=== PATIENT | female | born 1950 | race Caucasian/White ===

== ENCOUNTER 2021-12-01 15:00 | Emergency (ER) | payer MEDICARE, SELFPAY ==
--- NOTE | 2021-12-01 15:06 | XRR_ITS ---
PROCEDURE INFORMATION: Exam: XR Chest Exam date and time: 12/01/2021 3:06 PM Age: 71 years old Clinical indication: Other: AMS TECHNIQUE: Imaging protocol: XR of the chest. Views: 1 view. COMPARISON: CR Chest 1 [place] [id number] 12/05/2018 7:52 PM FINDINGS: Lungs: Unremarkable. No consolidation. Pleural spaces: Unremarkable. No pleural effusion. No pneumothorax. Heart/Mediastinum: Unremarkable. No cardiomegaly. Bones/joints: Unremarkable. XR/XR chest 1V portable [id number] IMPRESSION: No acute findings.
[2021-12-01 15:23] VITALS: BP 149/70; PULSE 88; RESP 16; TEMP 36.6; O2SAT 92; BMI 25.9
--- NOTE | 2021-12-01 15:41 | CTR_ITS ---
PROCEDURE INFORMATION: Exam: CT Head Without Contrast Exam date and time: 12/01/2021 3:41 PM Age: 71 years old Clinical indication: Condition or disease; Convulsions or seizures; Altered mental status/memory loss; Additional info: genny US TECHNIQUE: Imaging protocol: Computed tomography of the head without contrast. Radiation optimization: All CT scans at this facility use at least one of these dose optimization techniques: automated exposure control; mA and/or kV adjustment per patient size (includes targeted exams where dose is matched to clinical indication); or iterative reconstruction. COMPARISON: CT head wo con* [id number] 12/05/2018 8:16 PM RADIATION DOSE METRICS: Total DLP (mGy-cm): 685.31 FINDINGS: Brain: There is cerebral volume loss present appropriate for age. No hemorrhage. Unremarkable white matter. No mass effect. Cerebral ventricles: There is ventriculomegaly appropriate for age. Paranasal sinuses: Visualized sinuses are unremarkable. No fluid levels. Mastoid air cells: Visualized mastoid air cells are well aerated. Bones/joints: Unremarkable. No acute fracture. Soft tissues: Unremarkable. CT/CT head wo con* [id number] IMPRESSION: 1. No acute intracranial abnormality. 2. Cerebral volume loss and ventriculomegaly appropriate for age.
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
[2021-12-01 16:01] LABS: Basophils # 0.1 10^3/uL (0.0-0.1); Basophils % 0.8 %; Eosinophils # 0.1 10^3/uL (0.0-0.8); Eosinophils % 1.1 %; Hemoglobin 9.9 g/dL (11.5-15.3); Lymphocytes # 1.2 10^3/uL (0.8-4.8); Lymphocytes % 15.8 %; Mean Corpuscular Hemoglobin 25.2 pg (28.0-34.0); Mean Platelet Volume 11.2 fL (7.4-10.4); Monocytes # 0.4 10^3/uL (0.2-0.9); Neutrophils # 5.56 10^3/uL (1.8-7.7); Nucleated Red Blood Cells % 0 %; Platelet Count 257 10^3/cmm (130-400); Red Blood Count 3.93 10^6/uL (4.1-5.3); Red Cell Distribution Width 16.4 % (12.1-15.1); White Blood Count 7.3 10^3/uL (4.0-10.0)
[2021-12-01] MEDS: LORazepam 2 mg/mL INJ 1 mL 1 MG IVP (16:15)
[2021-12-01 16:40] LABS: Alanine Aminotransferase 11 U/L (0-33); Alkaline Phosphatase 85 IU/L (35-105); Anion Gap 15.4 (5-19); Aspartate Amino Transferase 15 U/L (0-32); Blood Urea Nitrogen 14 mg/dL (8-23); Calcium 8.4 mg/dL (8.5-10.5); Carbon Dioxide 25 mmol/L (22-29); Chloride 105 mmol/L (98-107); Globulin 1.8 g/dL (1.3-4.6); Glucose 114 mg/dL (65-115); Lipase 21 U/L (13-60); Osmolality Calculated 293 mOsm/kg (285-295); Potassium 4.4 mmol/L (3.5-5.1); Sodium 141 mmol/L (136-145); Total Bilirubin 0.2 mg/dL (0.15-1.2); Total Protein 5.8 g/dL (6.6-8.7)
[2021-12-01 16:41] LABS: Troponin(5th) Baseline 14 ng/L (0-10)
--- NOTE | 2021-12-01 17:07 | ECG_ITS ---
[facility] Test Date: 2021-12-01 Pat Name: Pao Rivers Department: Room: Gender: Female Computer Assembler: : 1950 Requested By: Enma Limon Order Number: [id number] Reading MD: Nancy Carrero M.D. Measurements Intervals [place] Rate: 88 P: 11 IN: 134 QRS: 18 QRSD: 79 T: 54 QT: 366 QTc: 444 Interpretive Statements SINUS RHYTHM Compared to ECG 12/05/2018 21:33:22 No significant changes Electronically Signed On 12-02-2021 20:22:07 CREATIVE PROJECT MANAGER by Nancy Carrero M.D. [id number]
[2021-12-01 18:13] LABS: Troponin 5 2HR 19.47 ng/L (0-10); Troponin 5 2HR Delta 5.47 ABS# (0-10)
--- NOTE | 2021-12-03 17:27 | DCPLANNER ---
Addendum entered by Aleyda Peterson 12/14/21 06:26: actuarial manager was contacted by the office of Dr. Madison stating that clinic called and left a message to patient to call clinic to schedule an appointment. Original Note: actuarial manager had message to schedule a follow up appointment for patient with neurology. actuarial manager emailed patients information to the neurology clinic. Patients information will be printed and reviewed. Clinic will call patient with appointment information.
--- NOTE | 2021-12-06 12:45 | DCPLANNER ---
corporate accounting manager had message to speak with patient about scheduling a follow up appointment for patient with primary care physician. corporate accounting manager called phone number [phone], unable to speak with patient at this time, and unable to leave a voicemail for patient at this time.
== END 2021-12-01 18:58 | disposition home or self-care (01) ==
PROVIDERS: Emergency Provider Emergency Medicine; PCP Family Medicine
DX: G40.909 Epilepsy, unspecified, not intractable, without status epilepticus (principal)
CPT/HCPCS: 70450; 71045; 80053; 83690; 84484; 85025; 93005; 96374; 96375; 99283; J1953; J2060

== ENCOUNTER 2023-04-30 10:37 | Emergency (ER) | payer MEDICARE, SELFPAY ==
[2023-04-30 10:41] VITALS: PULSE 56; RESP 16; TEMP 36.7; O2SAT 97; BMI 35.6
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
[2023-04-30] MEDS: triamcinolone 40 mg/mL SDV IM (11:04)
[2023-04-30 11:12] VITALS: BP 170/82; PULSE 54; O2SAT 95
== END 2023-04-30 11:13 | disposition home or self-care (01) ==
PROVIDERS: Emergency Provider Physician Assistant; PCP Family Medicine
DX: L23.7 Allergic contact dermatitis due to plants, except food (principal)
CPT/HCPCS: 96372; 99284; J3301

== ENCOUNTER 2024-01-18 22:12 | Emergency (ER) | payer MEDICARE, SELFPAY ==
[2024-01-18 22:22] VITALS: PULSE 94; RESP 20; TEMP 36.6; O2SAT 94; BMI 23.2
--- NOTE | 2024-01-18 22:36 | XRR_ITS ---
PROCEDURE INFORMATION: Exam: XR Right Ribs with PA Chest Exam date and time: 01/18/2024 10:38 PM Age: 73 years old Clinical indication: Other: SOB; Patient HX: RT ant rib pain post fall TECHNIQUE: Imaging protocol: Radiologic exam of the right ribs with PA chest. Views: 3 views COMPARISON: CR XR chest 1V portable [id number] 12/01/2021 3:35 PM FINDINGS: Lungs: Unremarkable. No consolidation. Pleural spaces: Unremarkable. No pleural effusion. No pneumothorax. Heart/Mediastinum: Unremarkable. No cardiomegaly. Bones/joints: Unremarkable. XR/XR ribs RT mn 3V w CXR1V [id number] IMPRESSION: No acute findings.
--- NOTE | 2024-01-18 23:12 | ED_ITS ---
HPI - Fall General: Chief Complaint: Shortness of Breath/Dyspnea Stated Complaint: fell, inured on r side has ams Time Seen by Provider: 01/18/24 22:28 Source: patient and family Mode of arrival: ambulatory Limitations: no limitations History of Present Illness: Patient is a 73-year-old female presents to ED today with a complaint of right rib pain following a fall. Daughter states patient has dementia with behavioral disturbances. She states 3 days ago in the evening she was in one of her moods and purposely flailed herself to the ground. Daughter states she witnessed patient fall to the ground on her own. She did not strike her head or lose consciousness. She states she has intermittently complained of rib pain since that incident and demanded today that she be brought to the emergency department. Daughter states she has been up and ambulatory since the fall without difficulty or assistance. complaint: fall Onset (ago): day(s) Fall from: standing Fall witnessed: yes, by family Place fall occurred: home Loss of consciousness: None Prolonged down time: no Symptoms prior to fall: none Context: other (behavioral) Location of injury: chest Associated symptoms-after fall: Reports chest pain (R chest wall pain); Denies abdominal pain, headache(s), hematuria or lightheadedness Review of Systems Const: Denies: fever(s), chills, body aches, fatigue or malaise Card: Reports: chest pain (R chest wall pain); Denies: palpitations, irregular heart rhythm, edema, swelling of feet/ankles, lightheadedness, syncope or dyspnea on exertion Resp: Denies: dyspnea, productive cough, non-productive cough, wheezing, stridor, pain on inspiration, change in phlegm color, hemoptysis or chest congestion GI: Denies: abdominal pain, nausea, vomiting or diarrhea : Denies: flank pain, dysuria or hematuria Musc: Denies: back pain Neuro: Denies: headache(s) or dizziness Physical Exam Const: COMMON NORMALS: no acute distress, average body habitus, patient oriented x3, alert and well nourished EXAM LIMITATIONS: other limitations (hard of hearing, dementia) OTHER: chronic tremor HENMT: COMMON NORMALS: normocephalic and atraumatic HEAD & SCALP: normal to inspection, normocephalic and atraumatic FACE & SINUS: normal facial exam Eye: GENERAL EYE: appearance normal, both eyes and all related structures and normal light reflex DIRECT OPHTHALMOSCOPY: Yes normal light reflex Neck/C-Spine: COMMON NORMALS: full ROM GENERAL: Yes normal visual inspection CERVICAL SPINE: No Cervical spine tenderness Chest: COMMONS NORMALS: normal inspection of the chest OTHER: TTP R lateral ribs without crepitus; lung sounds normal Resp: COMMON NORMALS: normal respiratory effort and clear to auscultation bilaterally AUSCULTATION: clear to auscultation bilaterally Cardio: COMMON NORMALS: regular rate and regular rhythm RATE: regular rate RHYTHM: regular rhythm GI: COMMON NORMALS: Normal to inspection, nondistended, normoactive bowel sounds present, Soft to palpation, non-tender, No hepatosplenomegaly present and no masses PALPATION: Yes Soft to palpation and Yes No hepatosplenomegaly present : COMMON NORMALS: Yes no CVA tenderness BLADDER/KIDNEY EXAM: Yes no CVA tenderness Back/Pelvis: COMMON NORMALS: no CVA tenderness and thoracic and lumbar spine normal to inspection Extremity: COMMON NORMALS: normal to inspection and full ROM GENERAL: Yes normal exam except as noted Neuro: COMMON NORMALS: patient oriented x3 SENSORIUM/ORIENTATION: Yes alert Skin: TRAUMA: no lacerations or abrasions Course Vital Signs: Vital signs: Vital Signs Temperature 98 F 01/18/24 22:22 Pulse Rate 94 01/18/24 22:22 Respiratory Rate 20 H 01/18/24 22:22 Pulse Oximetry 94 01/18/24 22:22 Oxygen Delivery Me thod Room Air 01/18/24 22:22 MDM - Fall Medical Decision Making XRs of the right ribs and chest via personal interpretation is unremarkable. There were no other injury sustained per witness. We discussed conservative treatment at home with OTC analgesics as well as ice/heat. Return ED precau tions given. Medical Records I reviewed the patient's medical records. XR interpretation done by ED provider, pending radiology final review Discharge Plan Discharge Patient Disposition: Home Clinical Impression: Contusion of rib on right side Qualifiers: Encounter type: initial encounter Qualified Code(s): S20.211A - Contusion of right front wall of thorax, initial encounter Condition: Stable Prescriptions: No Action atorvastatin 20 mg tablet 20 mg PO DAILY Qty: 30 0RF Discharge Orders: Discharge ED (Routine); Ordered 01/18/24 Ordered By: Isabelle Gauthier Referrals: Vani Duggan DO [Primary Care Provider] - Patient Instructions: Rib Contusion (ED) Coding Level of Care Code ED Financial Representative for Navi Acevedo
[2024-01-18] MEDS: morphine 4 mg/mL SDV 1 mL IM (23:49)
== END 2024-01-19 00:15 | disposition home or self-care (01) ==
PROVIDERS: Emergency Provider Physician Assistant; PCP Family Medicine
DX: S20.211A Contusion of right front wall of thorax, initial encounter (principal); F03.90 Unspecified dementia, unspecified severity, without behavioral disturbance, psychotic disturbance, mood disturbance, and anxiety; W18.39XA Other fall on same level, initial encounter
CPT/HCPCS: 71101; 96372; 99284; J2270

== ENCOUNTER 2024-03-27 10:37 | Emergency (ER) | payer MEDICARE, SELFPAY ==
--- NOTE | 2024-03-27 10:42 | XRR_ITS ---
PROCEDURE INFORMATION: Exam: XR Chest Exam date and time: 03/27/2024 11:47 AM Age: 73 years old Clinical indication: Chest pressure; Patient HX: Svt; Syncope; Chest pain TECHNIQUE: Imaging protocol: Radiologic exam of the chest. Views: 1 view. COMPARISON: CR XR ribs RT mn 3V w CXR1V [id number] 01/18/2024 10:38 PM FINDINGS: Lungs: Suboptimal pulmonary expansion with associated accentuation of bronchovascular markings. No acute pulmonary pathology. Pleural spaces: No pleural effusion. Heart/Mediastinum: Cardiomediastinal contours accentuated by low lung volumes and AP technique. Diaphragm: Elevated right hemidiaphragm. Bones/joints: No significant pathology. XR/XR chest 1V portable [id number] IMPRESSION: No acute pathology or significant interval change given technique.
--- NOTE | 2024-03-27 10:42 | ECG_ITS ---
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 Measurements Intervals [place] Rate: 74 P: 34 ME: 155 QRS: 24 QRSD: 78 T: 237 QT: 379 QTc: 422 Interpretive Statements SINUS RHYTHM POSSIBLE LEFT ATRIAL ENLARGEMENT [-0.1mV P-WAVE IN V1/V2] LEFT VENTRICULAR HYPERTROPHY AND ST-T CHANGE [VOLTAGE CRITERIA PLUS ST/T ABNORMALITY] Compared to ECG 12/01/2021 17:48:10 Left ventricular hypertrophy now present ST (T wave) deviation now present Electronically Signed On 03-27-2024 19:39:18 CDT by Nancy Carrero M.D. [id number] f
[2024-03-27 10:44] VITALS: BP 143/104; PULSE 94; RESP 16; TEMP 36.6; O2SAT 97; BMI 23.2
--- NOTE | 2024-03-27 10:49 | ED_ITS ---
HPI - Arrhythmia/Palpitations 2 General: Chief Complaint: Syncope Stated Complaint: syncopal episode Time Seen by Provider: 03/27/24 10:42 History of Present Illness: 73-year-old female presents emergency de partment via EMS personnel stating that she felt like her heart was beating excessively fast and causing her to have chest pressure approximately 1 hour prior to arrival today. EMS personnel state that the started an IV and she converted to a normal sinus rhythm. Patient states she feels much better and is doing well. She did have some associated nausea at the time of her chest pressure that she describes as a 2 out of 10 at that time. She said she did have associated shortness of breath and felt nauseated but that is resolved since her heart slowed down. Associated symptoms: Reports nausea Review of Systems 2 General: Reports: 10 or more systems reviewed and unremarkable except in HPI and below Card: Reports: chest pain, palpitations and irregular heart rhythm Resp: Reports: dyspnea GI: Reports: nausea Physical Exam 2 Narrative: EXAM NARRATIVE: Constitutional: the patient appears well nourished and of normal development. Vital signs as documented. No acute distress at present. Alert and oriented-to person, place, time and situation. Head, eyes, ears, nose, mouth, throat: Normocephalic, atraumatic. Pupils-equal, round, reactive to light. No scleral icterus. Normal-appearing external ears. Normal appearing nasal turbinates, no drainage. No obvious oral lesions, posterior oropharynx without erythema or exudates. Neck: Supple, trachea is midline, no lymphadenopathy, no jugular venous distension, thyromegaly, or carotid bruits. Carotid upstrokes are brisk bilaterally. Lungs: clear to auscultation to all lung wilkes. Symmetrical rise and fall of chest, no obvious signs of increased work of breathing at present. Cardiac: Regular rate and rhythm, positive S1, S2. No murmurs, rubs or gallops that I can appreciate Abdomen: Soft, non-tender to palpation, normal active bowel sounds to all quadrants. No palpable masses, no organomegaly and abdominal bruits. Extremities: 2+ pulses in the upper extremities that are equal bilaterally, 2+ pulses in the lower extremities that are equal bilaterally. Non-edematous. Moves all extremities well, sensation to all extremities are noted. Skin: Warm, dry, intact. Course 2 Vital Signs: Vital signs: Vital Signs Temperature 97.9 F 03/27/24 10:44 Pulse Rate 68 03/27/24 12:21 Respiratory Rate 16 03/27/24 11:51 Blood Pressure 115/59 03/27/24 12:21 Pulse Oximetry 97 03/27/24 12:21 Oxygen Delivery Me thod Room Air 03/27/24 11:21 MDM - Arrhythmia/Palpitations Medical Decision Making Physical exam completed and documented, I will obtain serial cardiac enzymes, serial twelve-lead EKGs, chest x-ray, CBC, CMP, urinalysis, B-type natriuretic peptide, PT/PTT/INR, and a chest x-ray. I will provide cardiac dose aspirin and nitroglycerin administration if indicated. Pending the review of the twelve-lead EKG I will also consider providing loading dose of heparin and possible heparin drip as well as evaluate the need for nitroglycerin drip, and reevaluate accordingly. I have reviewed previous and pertinent medical records for assist in obtaining beneficial medical information to improved the care and treatment of the patient. I will reevaluate in consider hospitalist consultation and cardiology consultation. Medical Records I reviewed the patient's medical records. Lab Data I reviewed the patient's lab results. 03/27/24 11:03 03/27/24 11:03 Radiology Impressions Chest X-Ray 03/27/24 10:42 IMPRESSION: No acute pathology or significant interval change given technique. Laboratory Results WBC 4.74 10^3/uL (3.29-11.43) 03/27/24 11:03 RBC 4.87 10^6/uL (3.85-5.65) 03/27/24 11:03 Hgb 14.80 g/dL (11.27-16.99) 03/27/24 11:03 Hct 46.8 % (36-47) 03/27/24 11:03 MCV 96.1 fl (85-98) 03/27/24 11:03 MCH 30.4 pg (27-33) 03/27/24 11:03 MCHC 31.6 g/dL (30-55) 03/27/24 11:03 RDW 14.6 % (12.1-15.1) 03/27/24 11:03 Plt Count 163 10^3/cmm (157-399) 03/27/24 11:03 MPV 11.3 fL (7.4-10.4) H 03/27/24 11:03 Neut % (Auto) 66.3 % 03/27/24 11:03 Lymph % (Auto) 20.5 % 03/27/24 11:03 Antelope % (Auto) 12.0 % 03/27/24 11:03 Eos % (Auto) 0.4 % 03/27/24 11:03 Baso % (Auto) 0.6 % 03/27/24 11:03 Neut # (Auto) 3.14 10^3/uL (1.8-7.7) 03/27/24 11:03 Lymph # (Auto) 1.0 10^3/uL (0.8-4.8) 03/27/24 11:03 Antelope # (Auto) 0.6 10^3/uL (0.2-0.9) 03/27/24 11:03 Eos # (Auto) 0.0 10^3/uL (0.0-0.8) 03/27/24 11:03 Baso # (Auto) 0.0 10^3/uL (0.0-0.1) 03/27/24 11:03 Nucleated RBC % (auto) 0 % 03/27/24 11:03 Nucleated RBCs # 0.0 /100WBC 03/27/24 11:03 PT 12.90 SECONDS (12.1-14.9) 03/27/24 11:03 INR 0.94 (0.8-1.2) 03/27/24 11:03 Sodium 138 mmol/L (136-145) 03/27/24 11:03 Potassium 3.8 mmol/L (3.5-5.1) 03/27/24 11:03 Chloride 103 mmol/L (98-107) 03/27/24 11:03 Carbon Dioxide 24 mmol/L (22-29) 03/27/24 11:03 Anion Gap 14.8 (5-19) 03/27/24 11:03 BUN 19 mg/dL (8-23) 03/27/24 11:03 Creatinine 0.8 mg/dL (0.5-0.9) 03/27/24 11:03 GFR Calculation Not Reportable 03/27/24 11:03 Glucose 114 mg/dL (65-115) 03/27/24 11:03 Calculated Osmolality 289 mOsm/kg (285-295) 03/27/24 11:03 Calcium 8.3 mg/dL (8.5-10.5) L 03/27/24 11:03 Total Bilirubin 0.3 mg/dL (0.15-1.2) 03/27/24 11:03 AST 17 U/L (0-32) 03/27/24 11:03 ALT 14 U/L (0-33) 03/27/24 11:03 Alkaline Phosphatase 70 U/L (35-105) 03/27/24 11:03 Troponin T Baseline 10 ng/L (0-10) 03/27/24 11:03 Troponin T 120 Minute 11.65 ng/L (0-10) H 03/27/24 13:43 Delta Troponin T 1.65 ABS# (0-10) 03/27/24 13:43 Total Protein 6.4 g/dL (6.6-8.7) L 03/27/24 11:03 Albumin 4.0 g/dL (3.5-5.2) 03/27/24 11:03 Globulin 2.4 g/dL (1.3-4.6) 03/27/24 11:03 All radiology interpretation(s) finalized by discharge EKG Data EKG 1: Interpretation: Twelve-lead EKG obtained 1126 and reviewed 1130 demonstrates sinus rhythm with a ventricular rate of 74 bpm, ME interval 155, QRS duration 78, QT 379, QTc [address] elevation or depression to demonstrate acute ischemia or infarction at present. Other EKG comments: Chest X-Ray 03/27/24 10:42 IMPRESSION: No acute pathology or significant interval change given technique. EKG 2: Interpretation: Twelve-lead EKG obtained at 2059 and reviewed at 1304 demonstrates sinus rhythm, ventricular rate 69 bpm, ME interval 148, QRS duration 82, QT [address] elevation or depression to demonstrate acute ischemia or infarction at present. Other EKG comments: Chest X-Ray 03/27/24 10:42 IMPRESSION: No acute pathology or significant interval change given technique. Discharge Plan Discharge Patient Disposition: Home Clinical Impression: Paroxysmal supraventricular tachycardia seen on court recording monitor Syncope Qualifiers: Syncope type: unspecified Qualified Code(s): R55 - Syncope and collapse Diarrhea Qualifiers: Diarrhea type: unspecified type Qualified Code(s): R19.7 - Diarrhea, unspecified Condition: Stable Prescriptions: New Imodium A-D 2 mg tablet 1 mg PO Q6H PRN (Reason: loose stool) Qty: 14 0RF No Action valproic acid 250 mg Capsule 500 mg PO BID Zoloft 25 mg Tablet 25 mg PO DAILY buspirone 15 mg Tablet 15 mg PO TID Discharge Orders: Discharge ED (Routine); Ordered 03/27/24 Ordered By: Imer Escudero Referrals: Nancy Carrero MD [Physician] - Vani Duggan DO [Primary Care Provider] - Discharge Diet: Usual diet Discharge Activity: Resume usual activity Patient Instructions: Opioid Safety, Pain Management Activity Restrictions/Additional Instructions: Activity Restrictions/Additional Instructions: Thank you for choosing [facility] for your healthcare needs today. Please realize that you were seen in the Emergency Department and that we are providing you with an emergency medical screening exam and this may not be a complete and all inclusive of all the testing and or medical work-up that you may need to determine your ailment or severity of your illness. It is very important that you follow-up as instructed with your Primary care provider or Specialist for additional evaluation and to discuss your medical treatment plan. Coding Level of Care Code ED Parcel Post Weigher for Navi Acevedo
[2024-03-27 10:51] VITALS: BP 143/104; PULSE 90; RESP 22; O2SAT 98
[2024-03-27 11:21] VITALS: BP 108/62; PULSE 77; RESP 16; O2SAT 96
[2024-03-27 11:24] LABS: Basophils % 0.6 %; Eosinophils % 0.4 %; Hematocrit 46.8 % (36-47); Lymphocytes % 20.5 %; Mean Corpuscular HGB Conc 31.6 g/dL (30-55); Mean Corpuscular Hemoglobin 30.4 pg (27-33); Mean Corpuscular Volume 96.1 fl (85-98); Mean Platelet Volume 11.3 fL (7.4-10.4); Monocytes # 0.6 10^3/uL (0.2-0.9); Neutrophils # 3.14 10^3/uL (1.8-7.7); Neutrophils % 66.3 %; Nucleated Red Blood Cells % 0 %; Platelet Count 163 10^3/cmm (157-399); Red Blood Count 4.87 10^6/uL (3.85-5.65); Red Cell Distribution Width 14.6 % (12.1-15.1); White Blood Count 4.74 10^3/uL (3.29-11.43)
[2024-03-27 11:41] LABS: INR 0.94 (0.8-1.2)
[2024-03-27 11:49] LABS: Alanine Aminotransferase 14 U/L (0-33); Alkaline Phosphatase 70 U/L (35-105); Anion Gap 14.8 (5-19); Aspartate Amino Transferase 17 U/L (0-32); Blood Urea Nitrogen 19 mg/dL (8-23); Calcium 8.3 mg/dL (8.5-10.5); Carbon Dioxide 24 mmol/L (22-29); Chloride 103 mmol/L (98-107); Creatinine Clr Calc Pharmacy 51.5744; Globulin 2.4 g/dL (1.3-4.6); Glucose 114 mg/dL (65-115); Osmolality Calculated 289 mOsm/kg (285-295); Potassium 3.8 mmol/L (3.5-5.1); Sodium 138 mmol/L (136-145); Total Bilirubin 0.3 mg/dL (0.15-1.2); Total Protein 6.4 g/dL (6.6-8.7)
[2024-03-27 11:50] LABS: Troponin(5th) Baseline 10 ng/L (0-10)
[2024-03-27 11:51] VITALS: BP 115/64; PULSE 73; RESP 16; O2SAT 97
[2024-03-27 12:21] VITALS: BP 115/59; PULSE 68; O2SAT 97
--- NOTE | 2024-03-27 12:42 | ECG_ITS ---
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 Measurements Intervals [place] Rate: 69 P: 56 ME: 148 QRS: 64 QRSD: 82 T: 268 QT: 413 QTc: 444 Interpretive Statements SINUS RHYTHM ST DEVIATION AND MODERATE T-WAVE ABNORMALITY, CONSIDER ANTEROLATERAL ISCHEMIA [-0.1+ mV T-WAVE IN V3-V6] ST DEVIATION AND MODERATE T-WAVE ABNORMALITY, CONSIDER INFERIOR ISCHEMIA [-0.1+ mV T-WAVE IN II/aVF] Compared to ECG 03/27/2024 11:26:06 T-wave abnormality now present Possible ischemia now present Left ventricular hypertrophy no longer present ST (T wave) deviation no longer present Electronically Signed On 03-27-2024 20:01:40 CDT by Nancy Carrero M.D. [id number]
[2024-03-27 14:12] LABS: Troponin 5 2HR 11.65 ng/L (0-10); Troponin 5 2HR Delta 1.65 ABS# (0-10)
== END 2024-03-27 15:04 | disposition home or self-care (01) ==
PROVIDERS: Emergency Provider Internal Medicine; PCP Family Medicine
DX: R55 Syncope and collapse (principal); R19.7 Diarrhea, unspecified; I47.19 Other supraventricular tachycardia
CPT/HCPCS: 36415; 71045; 80053; 84484; 85025; 85610; 93005; 99285

== ENCOUNTER 2024-04-28 20:30 | Inpatient (IN) | payer MEDICARE, SELFPAY ==
[2024-04-28 20:32] VITALS: BP 140/83; PULSE 107; RESP 20; TEMP 36.6; O2SAT 93; BMI 23.2
--- NOTE | 2024-04-28 20:33 | XRR_ITS ---
PROCEDURE INFORMATION: Exam: XR Chest Exam date and time: 04/28/2024 9:01 PM Age: 73 years old Clinical indication: Shortness of breath and other: Seizures TECHNIQUE: Imaging protocol: Radiologic exam of the chest. Views: 1 view. COMPARISON: CR (CHEST, ) 03/27/2024 11:47 AM FINDINGS: Lungs: No focal consolidation. Pleural spaces: No evidence of pneumothorax. No evidence of pleural effusion. Heart/Mediastinum: Cardiomediastinal silhouette is within normal limits. Bones/joints: No evidence of acute osseous abnormality. XR/XR chest 1V portable [id number] IMPRESSION: 1. No acute cardiopulmonary abnormality.
--- NOTE | 2024-04-28 20:34 | ECG_ITS ---
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 Measurements Intervals [place] Rate: 106 P: 0 NM: 0 QRS: 39 QRSD: 93 T: 244 QT: 339 QTc: 450 Interpretive Statements ATRIAL FIBRILLATION WITH RAPID VENTRICULAR RESPONSE POSSIBLE RIGHT VENTRICULAR CONDUCTION DELAY [RSR (QR) IN V1/V2] ST DEVIATION AND MODERATE T-WAVE ABNORMALITY, CONSIDER ANTEROLATERAL ISCHEMIA [-0.1+ mV T-WAVE IN V3-V6] ST DEVIATION AND MODERATE T-WAVE ABNORMALITY, CONSIDER INFERIOR ISCHEMIA [-0.1+ mV T-WAVE IN II/aVF] Compared to ECG 03/27/2024 12:59:03 Sinus rhythm no longer present T-wave abnormality still present Possible ischemia still present Electronically Signed On 04-29-2024 15:45:30 CDT by Haider Alexandre M.D. [email or web address] for [id number]
--- NOTE | 2024-04-28 20:39 | ED_ITS ---
HPI - Syncope 2 General: Chief Complaint: Seizure Stated Complaint: seizure Time Seen by Provider: 04/28/24 20:30 History of Present Illness: 73-year-old female who presents to the e mergency room by ambulance with what sounds like a near syncopal episode and some seizure-like activity without a postictal state. EMS reports that she was in A-fib with RVR when they arrived with rates as high as 1 6170. She had an episode of A-fib with RVR it sounds like recently but has not officially been diagnosed she says. On presentation her rate is down to 110. When asked her about this she says it has been going on for years. She did report having chest pressure at the time of the episode. No reports of fevers. No cough. No new lower extremity swelling. Review of Systems 2 Narrative: Constitutional symptoms: Negative except as documented in HPI. Skin symptoms: Negative except as documented in HPI. Eye symptoms: Negative except as documented in HPI. ENMT symptoms: Negative except as documented in HPI. Respiratory symptoms: Negative except as documented in HPI. Cardiovascular symptoms: Negative except as documented in HPI. Gastrointestinal symptoms: Negative except as documented in HPI. Genitourinary symptoms: Negative except as documented in HPI. Musculoskeletal symptoms: Negative except as documented in HPI. Neurologic symptoms: Negative except as documented in HPI. Psychiatric symptoms: Negative except as documented in HPI. Endocrine symptoms: Negative except as documented in HPI. Physical Exam 2 Narrative: EXAM NARRATIVE: General: Alert, no acute distress. Skin: Warm, dry. Head: Normocephalic, atraumatic. Neck: Supple, trachea midline. Eye: Extraocular movements are intact. Ears, nose, mouth and throat: mucosa moist. Cardiovascular: Tachycardic, irregularly irregular, Normal peripheral perfusion. Respiratory: Lungs are clear to auscultation, respirations are non-labored, breath sounds are equal, Symmetrical chest wall expansion. Gastrointestinal: Soft, Nontender, Non distended, Normal bowel sounds. Musculoskeletal: Normal ROM, no deformity. Neurological: Alert and oriented, No focal neurological deficit observed. Psychiatric: Cooperative, appropriate mood & affect. Course 2 Vital Signs: Vital signs: Vital Signs Temperature 97.8 F 04/28/24 20:32 Pulse Rate 103 H 04/28/24 23:04 Respiratory Rate 20 H 04/28/24 23:04 Blood Pressure 118/71 04/28/24 23:04 Pulse Oximetry 100 04/28/24 23:04 Oxygen Delivery Me thod Nasal Cannula 04/28/24 23:04 Oxygen Flow Rate 4 04/28/24 23:04 MDM - Syncope Medical Decision Making Medical decision making: Differential diagnosis including but not limited to and based on the above HPI, review of systems and physical exam in this patient with syncope: Vasovagal, orthostatics hypotension, cardiac dysrhythmia, myocardial infarction, infection and hypotension, Orders placed to evaluate differential diagnosis based on the above differential, HPI and physical exam EKG: Time 2038 rate 106. Atrial fibrillation with rapid ventricular response, No ST-T changes, no ectopy, This was reviewed and interpreted by myself the ER physician at 2041 Chest x-ray: No acute process. No infiltrate. No pneumothorax. No cardiomegaly. This was reviewed and interpreted by myself the ER physician. Repeat EKG: Time 2257 rate 96 atrial fibrillation with controlled rate, No ST-T changes, no ectopy, This was reviewed and interpreted by myself the ER physician at 2304. Heart rate has slowed some and she has in the 90s. Compared to last EKG Lab Review: Laboratory results were reviewed and interpreted by myself the emergency room physician. White count is 6. Hemoglobin is 15. Both normal. Her BUN and creatinine are 25 and 1. proBNP is 668 which is not significant. CRP is only 3. LFTs are normal. Prolonged emergency room stay: Patient with A-fib with RVR needs urinalysis for complete workup and has refused cath and has not urinated I reviewed the patient's medical record. Reexamination: Patient heart rate has improved but she is still in A-fib. Irregular. No increased work of breathing. Quite a difficult time getting a urine. She finally did produce some urine and she does have a urinary tract infection. She does seem slightly confused at times but is alert and oriented. Consultation: I spoke with Dr. Emanuel who agrees to admission. He recommends cardiac stepdown. Assessment and plan: Syncope Atrial fibrillation with rapid ventricular response Urinary tract infection Dehydration -Patient has received 2 L normal saline. Heart rate has improved and is below 100 now without any medications. -IV Rocephin in the emergency room. -I discussed the patient with the hospitalist on-call who is admitting the patient. - Discussed findings and plan with patient. Answered any questions. - All laboratory values were reviewed and interpreted personally by myself, the ER physician - All imaging was reviewed and interpreted personally by myself, the ER physician. - Evaluation and treatment of this problem were appropriate in the emergency setting Lab Data 04/28/24 21:15 04/28/24 21:15 Radiology Impressions Chest X-Ray 04/28/24 20:33 IMPRESSION: 1. No acute cardiopulmonary abnormality. Laboratory Results WBC 6.15 10^3/uL (3.29-11.43) 04/28/24 21:15 RBC 4.99 10^6/uL (3.85-5.65) 04/28/24 21:15 Hgb 15.40 g/dL (11.27-16.99) 04/28/24 21:15 Hct 47.5 % (36-47) H 04/28/24 21:15 MCV 95.2 fl (85-98) 04/28/24 21:15 MCH 30.9 pg (27-33) 04/28/24 21:15 MCHC 32.4 g/dL (30-55) 04/28/24 21:15 RDW 14.6 % (12.1-15.1) 04/28/24 21:15 Plt Count 208 10^3/cmm (157-399) 04/28/24 21:15 MPV 10.7 fL (7.4-10.4) H 04/28/24 21:15 Neut % (Auto) 51.5 % 04/28/24 21:15 Lymph % (Auto) 34.5 % 04/28/24 21:15 Robeson % (Auto) 11.7 % 04/28/24 21:15 Eos % (Auto) 0.8 % 04/28/24 21:15 Baso % (Auto) 1.0 % 04/28/24 21:15 Neut # (Auto) 3.17 10^3/uL (1.8-7.7) 04/28/24 21:15 Lymph # (Auto) 2.1 10^3/uL (0.8-4.8) 04/28/24 21:15 Robeson # (Auto) 0.7 10^3/uL (0.2-0.9) 04/28/24 21:15 Eos # (Auto) 0.1 10^3/uL (0.0-0.8) 04/28/24 21:15 Baso # (Auto) 0.1 10^3/uL (0.0-0.1) 04/28/24 21:15 Nucleated RBC % (auto) 0 % 04/28/24 21:15 Nucleated RBCs # 0.0 /100WBC 04/28/24 21:15 Sodium 142 mmol/L (136-145) 04/28/24 21:15 Potassium 4.7 mmol/L (3.5-5.1) 04/28/24 21:15 Chloride 102 mmol/L (98-107) 04/28/24 21:15 Carbon Dioxide 28 mmol/L (22-29) 04/28/24 21:15 Anion Gap 16.7 (5-19) 04/28/24 21:15 BUN 25 mg/dL (8-23) H 04/28/24 21:15 Creatinine 1.0 mg/dL (0.5-0.9) H 04/28/24 21:15 GFR Calculation Not Reportable 04/28/24 21:15 Glucose 130 mg/dL (65-115) H 04/28/24 21:15 Calculated Osmolality 300 mOsm/kg (285-295) H 04/28/24 21:15 Lactic Acid 1.4 mmol/L (0.5-2.2) 04/28/24 21:15 Calcium 9.4 mg/dL (8.5-10.5) 04/28/24 21:15 Total Bilirubin 0.2 mg/dL (0.15-1.2) 04/28/24 21:15 AST 14 U/L (0-32) 04/28/24 21:15 ALT 9 U/L (0-33) 04/28/24 21:15 Alkaline Phosphatase 74 U/L (35-105) 04/28/24 21:15 Troponin T Baseline 14 ng/L (0-10) H 04/28/24 21:15 Troponin T 120 Minute 11.80 ng/L (0-10) H 04/28/24 23:00 Delta Troponin T -2.20 ABS# (0-10) L 04/28/24 23:00 C-Reactive Protein 3.0 mg/L (0.0-4.9) 04/28/24 21:15 NT-Pro-B Natriuret Pep 668 pg/mL (0-125) H 04/28/24 21:15 Total Protein 6.6 g/dL (6.6-8.7) 04/28/24 21:15 Albumin 4.3 g/dL (3.5-5.2) 04/28/24 21:15 Globulin 2.3 g/dL (1.3-4.6) 04/28/24 21:15 Urine Color Yellow (Yellow) 04/28/24 23:41 Urine Appearance Cloudy (CLEAR) A 04/28/24 23:41 Urine pH 6 (5-7) 04/28/24 23:41 Ur Specific Dexter 1.020 (1.005-1.030) 04/28/24 23:41 Urine Protein Neg (Negative) 04/28/24 23:41 Urine Glucose (UA) Norm (Normal) 04/28/24 23:41 Urine Ketones Negative (Negative) 04/28/24 23:41 Urine Blood 2+ (Negative) H 04/28/24 23:41 Urine Nitrate Negative (Negative) 04/28/24 23:41 Urine Bilirubin Neg (Negative) 04/28/24 23:41 Urine Urobilinogen Neg mg/dL (Negative) 04/28/24 23:41 Ur Leukocyte Esterase 2+ (Negative) H 04/28/24 23:41 Urine RBC 5-10 /hpf (0-2) H 04/28/24 23:41 Urine WBC 10-15 /hpf (0-5) H 04/28/24 23:41 Ur Squamous Epith Cells 0-4 /hpf (0-5) H 04/28/24 23:41 Amorphous Sediment Not Reportable 04/28/24 23:41 Urine Bacteria 3+ /hpf (NONE) H 04/28/24 23:41 Hyaline Casts 0-4 /lpf H 04/28/24 23:41 Urine Mucus 3+ /hpf 04/28/24 23:41 All radiology interpretation(s) finalized by discharge Discharge Plan Discharge Patient Disposition: Admitted As Inpatient Clinical Impression: Syncope, Atrial fibrillation with rapid ventricular response, Urinary tract infection, Dehydration Condition: Stable Coding Level of Care Code ED Station Engineer for Navi Acevedo
[2024-04-28 21:21] VITALS: BP 132/85; PULSE 100; RESP 21; O2SAT 95
[2024-04-28 21:25] LABS: Basophils # 0.1 10^3/uL (0.0-0.1); Eosinophils # 0.1 10^3/uL (0.0-0.8); Eosinophils % 0.8 %; Hematocrit 47.5 % (36-47); Lymphocytes # 2.1 10^3/uL (0.8-4.8); Lymphocytes % 34.5 %; Mean Corpuscular HGB Conc 32.4 g/dL (30-55); Mean Corpuscular Hemoglobin 30.9 pg (27-33); Mean Corpuscular Volume 95.2 fl (85-98); Mean Platelet Volume 10.7 fL (7.4-10.4); Monocytes # 0.7 10^3/uL (0.2-0.9); Monocytes % 11.7 %; Neutrophils # 3.17 10^3/uL (1.8-7.7); Neutrophils % 51.5 %; Nucleated Red Blood Cells % 0 %; Platelet Count 208 10^3/cmm (157-399); Red Blood Count 4.99 10^6/uL (3.85-5.65); Red Cell Distribution Width 14.6 % (12.1-15.1); White Blood Count 6.15 10^3/uL (3.29-11.43)
[2024-04-28 21:46] LABS: Troponin(5th) Baseline 14 ng/L (0-10)
[2024-04-28 21:48] LABS: Lactic Sepsis W/Reflex 1.4 mmol/L (0.5-2.2)
[2024-04-28 22:05] LABS: Alanine Aminotransferase 9 U/L (0-33); Albumin Level 4.3 g/dL (3.5-5.2); Alkaline Phosphatase 74 U/L (35-105); Anion Gap 16.7 (5-19); Aspartate Amino Transferase 14 U/L (0-32); Blood Urea Nitrogen 25 mg/dL (8-23); Calcium 9.4 mg/dL (8.5-10.5); Carbon Dioxide 28 mmol/L (22-29); Chloride 102 mmol/L (98-107); Creatinine Clr Calc Pharmacy 41.2595; Globulin 2.3 g/dL (1.3-4.6); Glucose 130 mg/dL (65-115); NT Pro B Type Natriuretic Pept 668 pg/mL (0-125); Osmolality Calculated 300 mOsm/kg (285-295); Potassium 4.7 mmol/L (3.5-5.1); Sodium 142 mmol/L (136-145); Total Bilirubin 0.2 mg/dL (0.15-1.2); Total Protein 6.6 g/dL (6.6-8.7)
[2024-04-28] MEDS: sodium chloride 0.9% 1,000 ML 999 ML IV (22:29)
--- NOTE | 2024-04-28 22:58 | ECG_ITS ---
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 Measurements Intervals [place] Rate: 96 P: 0 NC: 0 QRS: 38 QRSD: 80 T: 248 QT: 328 QTc: 416 Interpretive Statements ATRIAL FIBRILLATION POSSIBLE RIGHT VENTRICULAR CONDUCTION DELAY [RSR (QR) IN V1/V2] ST DEVIATION AND MODERATE T-WAVE ABNORMALITY, CONSIDER ANTEROLATERAL ISCHEMIA [-0.1+ mV T-WAVE IN V3-V6] ST DEVIATION AND MODERATE T-WAVE ABNORMALITY, CONSIDER INFERIOR ISCHEMIA [-0.1+ mV T-WAVE IN II/aVF] Compared to ECG 04/28/2024 20:39:04 No significant changes Electronically Signed On 04-29-2024 7:59:25 CDT by Nadir Degroot M.D. [id number]
[2024-04-28 23:04] VITALS: BP 118/71; PULSE 103; RESP 20; O2SAT 100
[2024-04-28 23:56] LABS: Bilirubin Urine Neg (Negative); Blood Urine 2+ (Negative); Glucose Urine UA Norm (Normal); Ketones Urine Negative (Negative); Leukocyte Esterase Urine 2+ (Negative); Nitrate Urine Negative (Negative); Protein Urine Neg (Negative); Urine Appearance Cloudy (CLEAR); Urine Color Yellow (Yellow); Urobilinogen Urine Neg (Negative); pH Urine 6 (5-7)
[2024-04-28 23:57] LABS: Add Urine Culture? Yes; Bacteria Urine 3+ /hpf; Mucus Urine 3+ /hpf; Squamous Epithelial Cell Urine 0-4 /hpf (0-5)
[2024-04-28 23:58] LABS: Hyaline Casts Urine 0-4 /lpf
[2024-04-29] VITALS (44 sets, daily range): BP systolic 78–159; BP diastolic 57–127; PULSE 72–118; RESP 7–33; TEMP 36.7–37.5; O2SAT 83–100
[2024-04-29] MEDS: cefTRIAXone 1,000 MG in sodium chloride 0.9% (plus) 50 ML 100 MG IV ×2 (00:57→20:37)
--- NOTE | 2024-04-29 01:25 | PC.NURSE ---
Admit Received patient from ER via stretcher to ICU 5 as a CSU status diagnosis of A-fib and UA. No reports of pain or discomfort or shortness of breath at present time. Dr. Emanuel to bedside, patient assessed.
--- NOTE | 2024-04-29 01:46 | P.HP_ITS ---
Providers/Chief Complaint 2 Admitting Physician: George Emanuel Primary Care Provider: Vani Duggan DO Chief Complaint: seizure History of Present Illness Pleasant very hard of hearing 73-year-old lady with Parkinson's disease, chronic tremor, had a near syncopal episode earlier today, and then after getting into bed was told that she had a seizure, without postictal period. Reported presyncopal episode on the right over with EMS, found to be tachycardic, heart rates in the 180s, on presentation to the ER found to be in A-fib with RVR, with some improvement in her heart rate. Blood pressure initially soft received bolus. She reports she has had possible history of atrial fibrillation paroxysmal, but is not sure with regards to what medication she might be taking, but pressure knows she is not on anticoagulation. She states she follows with a neurologist in [place], has tried 2 different Parkinson's medications but so far without improvement in symptoms. She states she was going to be referred for brain imaging by her primary provider but that has not yet happened. Review of Systems 2 Const: Denies: fever(s), chills, body aches or malaise ENMT: Denies: throat pain Card: Reports: pre-syncope; Denies: edema or dyspnea on exertion Resp: Reports: other (chest tightness); Denies: dyspnea, productive cough, change in phlegm color or hemoptysis GI: Reports: diarrhea (Chronic/recurrent); Denies: abdominal pain, nausea, vomiting, constipation, hematochezia or melena : Denies: flank pain, urinary frequency or hematuria Musc: Denies: back pain, joint swelling or joint redness Skin/Breast: Denies: rash or new lesions Neuro: Reports: seizure-like activity; Denies: headache(s), numbness in extremities, weakness in extremities or confusion Medications/Allergies Home Medications Medication Instructions Recorded Confirmed Last Taken Type buspirone 15 mg tablet 15 mg PO TID 03/27/24 03/27/24 03/27/24 History loperamide 2 mg tablet (Imodium 1 mg (1/2 x 2 mg) PO Q6H PRN loose 03/27/24 Unknown Rx A-D) stool #14 tabs sertraline 25 mg tablet (Zoloft) 25 mg PO DAILY 03/27/24 03/27/24 03/26/24 History valproic acid 250 mg capsule 500 mg PO BID 03/27/24 03/27/24 03/26/24 History Allergies Allergy/AdvReac Type Severity Reaction Status Date / Time Penicillins Allergy Unknown Verified 03/27/24 11:23 PFSH Acute 2 PFSH: Medical History Paroxysmal atrial fibrillation Parkinsons disease Social History Household members: family Vitals/I&O/Wt Last Vital Signs Temp 97.8 F 04/28/24 20:32 Pulse 108 H 04/29/24 00:47 Resp 20 H 04/28/24 23:04 BP 133/82 04/29/24 00:47 Pulse Ox 94 04/29/24 00:47 O2 Del Method Nasal Cannula 04/29/24 00:47 O2 Flow Rate 4 04/28/24 23:04 04/28/24 04/28/24 04/29/24 14:59 22:59 06:59 Intake Total 1000 / 1000 Balance 1000 / 1000 Weight last 48 hrs Weight 59.874 kg Weight 52.163 kg Physical Exam 2 Const: COMMON NORMALS: patient oriented x3 and alert GENERAL APPEARANCE: c ooperative ORIENTATION/CONSCIOUSNESS: Yes awake HENMT: COMMON NORMALS: oropharynx normal Neck/C-Spine: COMMON NORMALS: no JVD Resp: COMMON NORMALS: normal respiratory effort and clear to auscultation bilaterally AUSCULTATION: clear to auscultation bilaterally Cardio: COMMON NORMALS: no JVD, regular rhythm, S1 normal heart sound present, S2 normal heart sound present and No murmurs present (Cardio) RHYTHM: regular rhythm HEART SOUNDS: S1 normal heart sound present and S2 normal heart sound present GI: COMMON NORMALS: Normal to inspection, nondistended, normoactive bowel sounds present, Soft to palpation and non-tender PALPATION: Yes Soft to palpation Extremity: COMMON NORMALS: no joint enlargement and no pedal edema Neuro: COMMON NORMALS: patient oriented x3 and moves all extremities S ENSORIUM/ORIENTATION: Yes alert OTHER: Severe bilateral tremor, almost choreiform movements. Skin: COMMON NORMALS: no rashes or lesions noted GENERAL SKIN EXAM: no rashes or lesions noted Data 04/28/24 21:15 04/28/24 21:15 A&P Assessment and plan (1) Atrial fibrillation with rapid ventricular response: A-fib with RVR complicated with presyncopal/syncopal episodes. She reports history of atrial fibrillation but is not sure she is on any medications for it, definitely is not on any anticoagulation. Having some chest tightness, although relates it possibly to asthma. No chest pain. Discussed with her risk of stroke. Reviewed vitals, CBC, CMP, baseline anterior troponin, lactate. Reviewed ER note, discussed with ER provider. Requesting TSH, magnesium. Reviewed EKG, my interpretation atrial fibrillation with some J- point elevation, there is some anterolateral, inferior T wave inversion, pending official read. Troponin so far unremarkable. Metoprolol 25 mg twice daily for now. Monitor for risk of hypotension with metoprolol with initially soft blood pressure. Monitor blood pressures. Blood pressure soft on presentation, found to be dehydrated, improved with IV fluid. Monitor on telemetry. Complete troponin EKG series. Obtain echocardiogram once heart rate is better to allow for study acquisition. Obtaining CT of the head, subsequently consider start of anticoagulation if no bleeding, concerning findings or further seizure-like activity. With severity of her tremor MRI would not produce any usable images at least at current time. Consider referral for outpatient EEG, follow-up with neurology for consideration of further imaging. (2) Syncope: Presyncope at home, subsequently possibly additional presyncope with worsening tremor versus possible seizure, patient reports family seeing tonic-clonic activity. Without postictal state. Additional presyncope in EMS on the way here and reported. Discussed with her concern that this is more likely presyncopal/syncopal episodes due to A-fib with RVR, but possible seizure. She denies any recent medication changes. Denies prior history of epilepsy. I see she does have valproic acid listed as one of her home medications although unconfirmed. Will check valproic acid level. Obtain CT of the head. Treat A-fib with RVR. Obtain echo once heart rates allow. At that time also obtain orthostatics. Monitor on telemetry. Check TSH, magnesium. Treat UTI. Treat asthma. Seizure precautions. (3) Urinary tract infection: Treat UTI. Continue Rocephin for now. Follow-up urine culture. (4) Dehydration: Received fluid challenge in ER. Continue oral diet. Reassess volume status, reassess labs. Plan Possible mild asthma exacerbation, he is on nasal cannula oxygen 4 L, but oxygen saturation very variable, difficult to obtain proper reading with her tremor. Sat monitor repositioned to her ear. Near entry very minimally diminished in the lungs, without wheezing. Will request level butyryl nebs as well as hopefully not to worsen tachycardia. Inhaled budesonide. Reassess condition. Parkinson's disease: Follows with neurology in [place], states has tried several medications for the Parkinson's disease but without success so far. Was supposed to be referred for brain imaging by PCP. Hearing loss: Follow-up with primary provider for further assessment, referral to audiology. Requesting to confirm home medications: Please review and resume once available. Attestations 2 Medical Necessity Statement*: Admission of over 2 midnights anticipated for assessment management of A-fib with RVR with presyncopal episodes, possible seizure, UTI, asthma exacerbation. Diagnoses Atrial fibrillation with rapid ventricular response I48.91 Syncope R55 Urinary tract infection N39.0 Dehydration E86.0
--- NOTE | 2024-04-29 01:48 | CTR_ITS ---
PROCEDURE INFORMATION: Exam: CT Head Without Contrast Exam date and time: 04/29/2024 2:51 AM Age: 73 years old Clinical indication: Other: Possible seizure; Additional info: Pre-syncope, possible seizure TECHNIQUE: Imaging protocol: Computed tomography of the head without contrast. Radiation optimization: All CT scans at this facility use at least one of these dose optimization techniques: automated exposure control; mA and/or kV adjustment per patient size (includes targeted exams where dose is matched to clinical indication); or iterative reconstruction. COMPARISON: CT head wo con* [id number] 12/01/2021 4:32 PM RADIATION DOSE METRICS: Total DLP (mGy-cm): 961.9 FINDINGS: Brain: Scattered regions of intracranial calcified atherosclerotic disease. Pineal gland calcifications. Small lipomas of the falx. Mild cerebral atrophy with compensatory dilation of the fluid spaces. Cerebral ventricles: Choroid plexus calcifications. Pituitary gland and sella: Empty sella, of likely little clinical significance given isolation. Paranasal sinuses: Visualized sinuses are unremarkable. No fluid levels. Mastoid air cells: Visualized mastoid air cells are well aerated. Bones: Unremarkable. No acute fracture. Soft tissues: Unremarkable. CT/CT head wo con* [id number] IMPRESSION: 1. No acute intracranial findings. 2. Additional findings as above.
[2024-04-29] MEDS: metoprolol tartrate 25 mg Tablet PO ×3 (02:00→20:40)
[2024-04-29 02:32] LABS: Thyroid Stimulating Hormone 6.33 uIU/mL (0.27-4.20)
--- NOTE | 2024-04-29 02:34 | ECG_ITS ---
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 Measurements Intervals [place] Rate: 110 P: 0 KS: 0 QRS: 61 QRSD: 84 T: 256 QT: 342 QTc: 464 Interpretive Statements ATRIAL FIBRILLATION WITH RAPID VENTRICULAR RESPONSE ST DEVIATION AND MODERATE T-WAVE ABNORMALITY, CONSIDER ANTEROLATERAL ISCHEMIA [-0.1+ mV T-WAVE IN V3-V6] ST DEVIATION AND MODERATE T-WAVE ABNORMALITY, CONSIDER INFERIOR ISCHEMIA [-0.1+ mV T-WAVE IN II/aVF] Compared to ECG 04/28/2024 22:58:15 No significant changes Electronically Signed On 04-29-2024 15:53:42 CDT by Haider Alexandre M.D. [id number]
[2024-04-29 03:11] LABS: Valproic Acid Level 65.5 ug/mL (50-100)
--- NOTE | 2024-04-29 03:29 | PC.RESP ---
Patient EKG @ 2033 was canceled duplicate order Per verbal order from Dr. wade in ER.
[2024-04-29 04:01] LABS: Troponin 5 6HR 11.12 ng/L (0-10)
[2024-04-29 04:06] LABS: Troponin 5 6HR Delta -2.88 ng/L (0-12)
[2024-04-29 04:43] LABS: Adenovirus Not Detected (NOT DETECT); Chlamydia Pneumoniae Not Detected (NOT DETECT); Coronavirus 229E,HKU1,NL63,OC4 Not Detected (NOT DETECT); Human Metapneumovirus Not Detected (NOT DETECT); Human Rhinovirus/Enterovirus Not Detected (NOT DETECT); Influenza A Not Detected (NOT DETECT); Influenza A H1 Not Detected (NOT DETECT); Influenza A H1-2009 Not Detected (NOT DETECT); Influenza A H3 Not Detected (NOT DETECT); Influenza B Not Detected (NOT DETECT); Mycoplasma Pneumoniae Not Detected (NOT DETECT); Parainfluenza Virus Type 1 Not Detected (NOT DETECT); Parainfluenza Virus Type 2 Not Detected (NOT DETECT); Parainfluenza Virus Type 3 Not Detected (NOT DETECT); Parainfluenza Virus Type 4 Not Detected (NOT DETECT); Respiratory Syncytial Virus A Not Detected (NOT DETECT); Respiratory Syncytial Virus B Not Detected (NOT DETECT); SARS-COV-2 Not Detected (NOT DETECT)
[2024-04-29] MEDS: budesonide 0.5 mg/2 mL Neb 0.25 MG INHALATION ×2 (07:30→19:55)
[2024-04-29] MEDS: levalbuterol 0.63 mg/3 mL Neb 0.630000000000000004 MG INHALATION ×3 (07:30→19:55)
--- NOTE | 2024-04-29 09:03 | PC.PHAR ---
PT STATES SHE REALLY ONLY TAKES THE VALPROIC ACID 250MG 2 TABLETS TWICE DAILY
--- NOTE | 2024-04-29 09:10 | USCV_ITS ---
Pao Rivers Age: 73 Gender: F : 1950 Exam Date: 04/29/2024 14:04 Ordering Phys: Leno Aiken MD Technologist: Exam Location: [facility] [place] Indication: sob chest pain BP: 113 / 70 HR: 115 Rhythm: Sinus Technical Quality: Adequate MEASUREMENTS (Male / Female) Normal Values 2D ECHO LV Diastolic Diameter PLAX 2.4 cm 4.2 - 5.9 / 3.9 - 5.3 cm LV Systolic Diameter PLAX 1.6 cm IVS Diastolic Thickness 1.4 cm 0.6 - 1.0 / 0.6 - 0.9 cm IVS Systolic Thickness 1.4 cm LVPW Diastolic Thickness 1.2 cm 0.6 - 1.0 / 0.6 - 0.9 cm LVPW Systolic Thickness 1.5 cm LVOT Diameter 2.0 cm LV Ejection Fraction 2D Teich 64.1 % LV Ejection Fraction MOD 2C 51.9 % LV Ejection Fraction 2C AL 50.9 % LA Diameter 2.3 cm Aorta at Sinotubular Diameter 1.9 cm IVC Diameter 1.7 cm M-MODE LA Ao Ratio MM 1.0 AV Cusp Separation MM 1.9 cm DOPPLER AV Peak Velocity 158.0 cm/s MV Peak Velocity 105.0 cm/s MV Area PHT 4.0 cm squared Mitral E to A Ratio 2.5 TV Peak Velocity 216.5 cm/s TR Peak Velocity 224.0 cm/s TR Peak Gradient 20.1 mmHg TV Peak E Velocity 78.0 cm/s Right Atrial Pressure 3.0 mmHg Pulmonary Artery Systolic Pressu 23.1 mmHg PV Peak Velocity 101.0 cm/s FINDINGS Left Ventricle Left ventricle is normal in size. Moderate left ventricular hypertrophy. LV systolic function is normal with EF of 60 to 65%. No regional wall motion abnormalities are seen. Right Ventricle Normal in size and function Right Atrium Normal in size Left Atrium Normal in size Mitral Valve Moderate mitral annular calcification. Mild mitral regurgitation. Aortic Valve Aortic valve is structurally normal. No significant stenosis or regurgitation. Tricuspid Valve Insufficient TR jet to calculate RVSP Pulmonic Valve Not well visualized Pericardium Normal Aorta Normal in size IVC Appears to be normal CONCLUSIONS LV systolic function is normal with EF of 60 to 65%. Moderate left ventricular hypertrophy. Mild mitral regurgitation. No comparison studies are available. Nadir Degroot MD (Electronically Signed) Final Date: 29 Apr 2024 18:41 S
--- NOTE | 2024-04-29 09:10 | USCV_ITS ---
Mandeepdavid Pao Age: 73 Gender: F : 1950 Exam Date: 04/29/2024 12:05 Ordering Phys: Leno Aiken MD Technologist: [facility] Exam Location: [facility] – [place] Indication: Syncope Risk Factors: Previous Vascular Surgery: Right Brachial BP: / Left Brachial BP: / Right Left Velocity (cm/s) Spectral Plaque Velocity (cm/s) Spectral Plaque Syst/Diast Broadening Syst/Diast Broadening 59.50/ 15.40 Prox CCA 53.80 / 14.60 55.60/ 16.70 Mid CCA 59.30 / 22.90 53.00/ 11.50 Distal CCA 56.80 / 21.70 27.90/ 8.10 Prox ICA 61.80 / 16.60 28.70/ 9.80 Mid ICA 63.50 / 25.60 36.10/ 13.10 Distal ICA 62.90 / 21.30 65.70 ECA 0.70 ICA/CCA 1.10 Antegrade Vertebral Antegrade / cm/s / cm/s Tri Subclavian Tri 68.40 CONCLUSIONS Right ICA stenosis <50%. Mild atheromatous plaque right carotid bulb/ICA. Left ICA stenosis <50%. Mild atheromatous plaque left carotid bulb/ICA. Intimal thickening in the common carotid arteries and internal carotid arteries bilaterally. Normal antegrade Doppler flow noted in the right vertebral artery. Normal antegrade Doppler flow noted in the left vertebral artery. Angel Forte MD (Electronically Signed) Final Date: 29 Apr 2024 16:01 S
[2024-04-29 09:36] LABS: D Dimer 0.47 ug/mLFEU (0-0.59)
--- NOTE | 2024-04-29 11:52 | P.MISC_ITS ---
Miscellaneous Note Note: Patient examined this morning, she is awake and alert able to tell me a little bit about her previous medical history Talked with her daughter as well She is stating that her mom has been having syncopal spells lately Neurologist tried to do special brain imaging to find out this type of [place] son's They have tried multiple medications but nothing has stopped her seizures They were in the process of trying Topamax Patient has resting tremors Not sure if resting tremors contributing to abnormal EKG versus A-fib RVR She is awake and alert able to comprehend Clinically looks slightly dehydrated Plan is to continue valproic acid patient has schizophrenia, daughter stating that if she does not get valproic acid her anxiety can escalate and she could become really aggressive with the staff I will add Xanax as well Continue ceftriaxone for UTI Added metoprolol for consideration of A-fib RVR She is full code Plan to discharge her tomorrow requested carotid Doppler and echo
[2024-04-29 12:36] LABS: Free T4 Free Thyroxine 0.92 ng/dL (0.82-1.77)
--- NOTE | 2024-04-29 20:21 | PC.NURSE ---
Updated lydia Rowland on current patient status.
[2024-04-30] VITALS (11 sets, daily range): BP systolic 100–145; BP diastolic 53–76; PULSE 69–85; RESP 13–18; TEMP 36.5–36.6; O2SAT 90–100
[2024-04-30] MEDS: ALPRAZolam 0.5 mg Tablet PO (00:10)
--- NOTE | 2024-04-30 00:18 | PC.NURSE ---
Notified daughter, Kashif that her mother Pao is going to be transferred to room 106 on the Cardiac step down unit.
--- NOTE | 2024-04-30 00:48 | PC.NURSE ---
Report given to HUGO Dia. Transferred to room 106 via wheelchair.
[2024-04-30] MEDS: levalbuterol 0.63 mg/3 mL Neb 0.630000000000000004 MG INHALATION ×2 (01:42→07:51)
[2024-04-30 07:03] LABS: Basophils # 0.1 10^3/uL (0.0-0.1); Basophils % 1.1 %; Eosinophils # 0.1 10^3/uL (0.0-0.8); Eosinophils % 1.3 %; Hematocrit 42.2 % (36-47); Lymphocytes # 3.1 10^3/uL (0.8-4.8); Lymphocytes % 49.8 %; Mean Corpuscular HGB Conc 32.2 g/dL (30-55); Mean Corpuscular Hemoglobin 31.2 pg (27-33); Mean Corpuscular Volume 96.8 fl (85-98); Monocytes # 0.6 10^3/uL (0.2-0.9); Monocytes % 10.1 %; Neutrophils # 2.32 10^3/uL (1.8-7.7); Neutrophils % 37.1 %; Nucleated Red Blood Cells % 0 %; Platelet Count 179 10^3/cmm (157-399); Red Blood Count 4.36 10^6/uL (3.85-5.65); Red Cell Distribution Width 14.7 % (12.1-15.1); White Blood Count 6.25 10^3/uL (3.29-11.43)
[2024-04-30 07:22] LABS: Anion Gap 12.3 (5-19); Blood Urea Nitrogen 22 mg/dL (8-23); Calcium 8.1 mg/dL (8.5-10.5); Carbon Dioxide 26 mmol/L (22-29); Chloride 103 mmol/L (98-107); Creatinine Clr Calc Pharmacy 60.9929; Glucose 88 mg/dL (65-115); Osmolality Calculated 287 mOsm/kg (285-295); Potassium 4.3 mmol/L (3.5-5.1); Sodium 137 mmol/L (136-145)
[2024-04-30] MEDS: budesonide 0.5 mg/2 mL Neb 0.25 MG INHALATION (07:51)
[2024-04-30] MEDS: metoprolol tartrate 25 mg Tablet PO (09:11)
--- NOTE | 2024-04-30 09:15 | PC.CHAP ---
Pastoral Care Encounter/Spiritual Assessment Type of Contact [] Declined refinery technician visit [] Patient/Family/Request visit [] Outpatient visit [] Follow-up visit [] Physician referral [] Code/Alert [x] Routine visit [] Staff referral [] Actively dying [] Patient sleeping [] Family support [] [] Out of room [] Palliative care [] [] Receiving care in room [] Pre-surgical visit [] Trauma [] Long length of stay [] ICU visit [] Other: Relational/Emotional Strength [x] Patient feels connected with others/family/visitors/staff [] Distress [] Loneliness/isolation [] Abandonment Spirituality of Patient [x] Person of Marisol [] Attends Buddhism of their [place] [x] Believes in Prayer [] Reads Bible or Episcopal materials [] There are Spiritual issues to be addressed [employer] Interventions [x] Prayer [] Active listening [x] Non-anxious presence [x] Spiritual/emotional support [] Crisis/trauma care [] Spiritual counseling [] Bereavement support [] Provided bereavement packet [] Provided Bible/devotional materials [] Provided toy/stuffed animal, coloring book to patient or family member [] Provided Communion [] Anointing/[place] [] Salvation [x] Completed spiritual assessment [] Other: Impact on Illness or Injury [] Angry [] Fearful [] Anxious [] Often cries [] Exhaustion [] Unable to work [] Unable to attend gnosticism [] Unable to walk/stand [] Unable to read [] Unable to drive [] Unable to eat/drink [] Unable to sleep [] Unable to be with family [] Patient intubated [] Other: Summary Time spent with patient 5 min
--- NOTE | 2024-04-30 09:44 | PC.SOCIAL ---
IMM Update pg 2 of IMM updated and reviewed w/ patient. Copy provided and copy dated, initialed and placed in chart.
--- NOTE | 2024-04-30 10:22 | P.DS_ITS ---
Discharge Providers Date of Admission: 04/29/24 00:48 Date of Discharge: April 30, 2024 Attending Provider at Admission: George Emanuel Attending Provider at Discharge: Leno Aiken MD Primary Care Provider: Vani Duggan DO Diagnoses at Discharge Discharge Diagnosis (1) Atrial fibrillation with rapid ventricular response: Status: Acute (2) Syncope: Status: Acute (3) Urinary tract infection: Status: Acute (4) Dehydration: Status: Acute Reason for Visit Reason for Visit: seizure Hospital Course Hospital Course 73 of female who has history of Parkinson's, follows up with a neurologist at [place], as per the daughter they have tried multiple medications which have not helped her to reduce tremors, they are thinking to do special imaging of her brain to learn more about type of Parkinson's, for now she is on valproic acid for her schizoaffective disorder along buspirone. In the hospital she was treated for UTI she was hydrated with IV fluids. She remained hemodynamically stable no syncopal events were noted. No seizure related activity noted in the hospital. CT head unremarkable, carotid Doppler and echo unremarkable. There is new diagnosis of A-fib with RVR which was controlled with metoprolol Eliquis 5 mg twice daily added as well. D-dimer unremarkable. Patient will be discharged back to her house, she lives with her daughter. Physical Exam Narrative: Awake and alert Resting tremors GCS 15 Nonfocal neuroexam Pleasant cooperative A-fib without RVR Currently on room air Discharge Data Studies Completed and Pending Completed Studies During Hospitalization Category Date Time Status CT head wo con* [id number] Routine Cat Scan 04/29/24 01:48 Completed XR chest 1V portable [id number] Stat Exams 04/28/24 20:33 Completed CV carotid duplex BI* [id number] Routine Ultrasound 04/29/24 09:10 Completed CV. echo complete* [id number] Routine Ultrasound 04/29/24 09:10 Completed Pending at discharge Category Date Time Status Basic Metabolic Panel AM LABS Lab 05/01/24 04:00 Ordered Basic Metabolic Panel AM LABS Lab 05/02/24 04:00 Ordered Complete Blood Count w/Auto AM LABS Lab 05/01/24 04:00 Ordered Complete Blood Count w/Auto AM LABS Lab 05/02/24 04:00 Ordered Urine Culture Stat Lab 04/28/24 23:41 Received Radiology Impressions Chest X-Ray 04/28/24 20:33 IMPRESSION: 1. No acute cardiopulmonary abnormality. Head CT 04/29/24 01:48 IMPRESSION: 1. No acute intracranial findings. 2. Additional findings as above. Laboratory Results WBC 6.25 10^3/uL (3.29-11.43) 04/30/24 06:31 RBC 4.36 10^6/uL (3.85-5.65) 04/30/24 06:31 Hgb 13.60 g/dL (11.27-16.99) 04/30/24 06:31 Hct 42.2 % (36-47) 04/30/24 06:31 MCV 96.8 fl (85-98) 04/30/24 06:31 MCH 31.2 pg (27-33) 04/30/24 06:31 MCHC 32.2 g/dL (30-55) 04/30/24 06:31 RDW 14.7 % (12.1-15.1) 04/30/24 06:31 Plt Count 179 10^3/cmm (157-399) 04/30/24 06:31 MPV 11.0 fL (7.4-10.4) H 04/30/24 06:31 Neut % (Auto) 37.1 % 04/30/24 06:31 Lymph % (Auto) 49.8 % 04/30/24 06:31 [place] % (Auto) 10.1 % 04/30/24 06:31 Eos % (Auto) 1.3 % 04/30/24 06:31 Baso % (Auto) 1.1 % 04/30/24 06:31 Neut # (Auto) 2.32 10^3/uL (1.8-7.7) 04/30/24 06:31 Lymph # (Auto) 3.1 10^3/uL (0.8-4.8) 04/30/24 06:31 [place] # (Auto) 0.6 10^3/uL (0.2-0.9) 04/30/24 06:31 Eos # (Auto) 0.1 10^3/uL (0.0-0.8) 04/30/24 06:31 Baso # (Auto) 0.1 10^3/uL (0.0-0.1) 04/30/24 06:31 Nucleated RBC % (auto) 0 % 04/30/24 06:31 Nucleated RBCs # 0.0 /100WBC 04/30/24 06:31 D-Dimer 0.47 ug/mLFEU (0-0.59) 04/29/24 03:05 Sodium 137 mmol/L (136-145) 04/30/24 06:31 Potassium 4.3 mmol/L (3.5-5.1) 04/30/24 06:31 Chloride 103 mmol/L (98-107) 04/30/24 06:31 Carbon Dioxide 26 mmol/L (22-29) 04/30/24 06:31 Anion Gap 12.3 (5-19) 04/30/24 06:31 BUN 22 mg/dL (8-23) 04/30/24 06:31 Creatinine 0.7 mg/dL (0.5-0.9) 04/30/24 06:31 GFR Calculation Not Reportable 04/30/24 06:31 Glucose 88 mg/dL (65-115) 04/30/24 06:31 Calculated Osmolality 287 mOsm/kg (285-295) 04/30/24 06:31 Lactic Acid 1.4 mmol/L (0.5-2.2) 04/28/24 21:15 Calcium 8.1 mg/dL (8.5-10.5) L 04/30/24 06:31 Magnesium 2.0 mg/dL (1.7-2.3) 04/28/24 23:00 Total Bilirubin 0.2 mg/dL (0.15-1.2) 04/28/24 21:15 AST 14 U/L (0-32) 04/28/24 21:15 ALT 9 U/L (0-33) 04/28/24 21:15 Alkaline Phosphatase 74 U/L (35-105) 04/28/24 21:15 Troponin T Baseline 14 ng/L (0-10) H 04/28/24 21:15 Troponin T 120 Minute 11.80 ng/L (0-10) H 04/28/24 23:00 Delta Troponin T -2.20 ABS# (0-10) L 04/28/24 23:00 Troponin T Hi Sens 6Hr 11.12 ng/L (0-10) H 04/29/24 03:05 Troponin T Hi Sens 6Hr Delta -2.88 ng/L (0-12) L 04/29/24 03:05 C-Reactive Protein 3.0 mg/L (0.0-4.9) 04/28/24 21:15 NT-Pro-B Natriuret Pep 668 pg/mL (0-125) H 04/28/24 21:15 Total Protein 6.6 g/dL (6.6-8.7) 04/28/24 21:15 Albumin 4.3 g/dL (3.5-5.2) 04/28/24 21:15 Globulin 2.3 g/dL (1.3-4.6) 04/28/24 21:15 TSH 6.33 uIU/mL (0.27-4.20) H 04/28/24 23:00 Free T4 0.92 ng/dL (0.82-1.77) 04/29/24 03:05 Urine Color Yellow (Yellow) 04/28/24 23:41 Urine Appearance Cloudy (CLEAR) A 04/28/24 23:41 Urine pH 6 (5-7) 04/28/24 23:41 Ur Specific [place] 1.020 (1.005-1.030) 04/28/24 23:41 Urine Protein Neg (Negative) 04/28/24 23:41 Urine Glucose (UA) Norm (Normal) 04/28/24 23:41 Urine Ketones Negative (Negative) 04/28/24 23:41 Urine Blood 2+ (Negative) H 04/28/24 23:41 Urine Nitrate Negative (Negative) 04/28/24 23:41 Urine Bilirubin Neg (Negative) 04/28/24 23:41 Urine Urobilinogen Neg mg/dL (Negative) 04/28/24 23:41 Ur Leukocyte Esterase 2+ (Negative) H 04/28/24 23:41 Urine RBC 5-10 /hpf (0-2) H 04/28/24 23:41 Urine WBC 10-15 /hpf (0-5) H 04/28/24 23:41 Ur Squamous Epith Cells 0-4 /hpf (0-5) H 04/28/24 23:41 Amorphous Sediment Not Reportable 04/28/24 23:41 Urine Bacteria 3+ /hpf (NONE) H 04/28/24 23:41 Hyaline Casts 0-4 /lpf H 04/28/24 23:41 Urine Mucus 3+ /hpf 04/28/24 23:41 Valproic Acid 65.5 ug/mL (50-100) 04/29/24 00:00 Adenovirus (PCR) Not detected (NOT DETECT) 04/29/24 01:39 C. pneumoniae DNA (PCR) Not detected (NOT DETECT) 04/29/24 01:39 Coronavirus 229E (PCR) Not detected (NOT DETECT) 04/29/24 01:39 Human Metapneumovir PCR Not detected (NOT DETECT) 04/29/24 01:39 Influenza A (H1) PCR Not detected (NOT DETECT) 04/29/24 01:39 Influ A (H1/09) PCR Not detected (NOT DETECT) 04/29/24 01:39 Influenza A (H3) PCR Not detected (NOT DETECT) 04/29/24 01:39 Influenza Type A (PCR) Not detected (NOT DETECT) 04/29/24 01:39 Influenza Type B (PCR) Not detected (NOT DETECT) 04/29/24 01:39 M. pneumoniae (PCR) Not detected (NOT DETECT) 04/29/24 01:39 Parainfluenza 1 (PCR) Not detected (NOT DETECT) 04/29/24 01:39 Parainfluenza 2 (PCR) Not detected (NOT DETECT) 04/29/24 01:39 Parainfluenza 3 (PCR) Not detected (NOT DETECT) 04/29/24 01:39 Parainfluenza 4 (PCR) Not detected (NOT DETECT) 04/29/24 01:39 RSV Type A (PCR) Not detected (NOT DETECT) 04/29/24 01:39 RSV Type B (PCR) Not detected (NOT DETECT) 04/29/24 01:39 Entero/Rhino (PCR) Not detected (NOT DETECT) 04/29/24 01:39 SARS-CoV-2 (PCR) Not detected (NOT DETECT) 04/29/24 01:39 Vitals Last Vital Signs Temp 97.8 F 04/30/24 07:58 Pulse 85 04/30/24 08:13 Resp 16 04/30/24 07:53 BP 123/73 04/30/24 07:58 Pulse Ox 95 04/30/24 07:58 O2 Del Method Room Air 04/30/24 07:58 O2 Flow Rate 4 04/29/24 02:00 Discharge Plan Discharge Patient Disposition: Home Condition: Stable Prescriptions: New Eliquis 5 mg tablet 5 mg PO BID Qty: 60 3RF levofloxacin 750 mg tablet 750 mg PO DAILY 7 Days Qty: 7 0RF metoprolol tartrate 25 mg Tablet 25 mg PO BID@0900,2100 Qty: 60 3RF Continued valproic acid 250 mg Capsule 500 mg PO BID sertraline [Zoloft] 25 mg Tablet 25 mg PO DAILY buspirone 15 mg Tablet 15 mg PO TID loperamide [Imodium A-D] 2 mg tablet 1 mg PO Q6H PRN (Reason: loose stool) Qty: 14 0RF Discharge Orders: Discharge Order (Routine); Ordered 04/30/24 Ordered By: Leno Aiken Referrals: Vani Duggan DO [Primary Care Provider] - 05/03/24 9:20 am Patient Instructions: Metoprolol (By mouth) (Lopressor, Toprol XL), Levofloxacin (By mouth) (Levaquin, Levaquin Leva-maricruz), Apixaban (By mouth) (Eliquis), A-fib (Atrial Fibrillation) (DC), Opioid Safety Discharge Attestations Time Spent in Discharge Care*: greater than 30 min Quality Metrics Clinical Quality Measures [ No reported AMI, CVA or VTE this stay] Coding Level of Care Code Acute Code for Chg Fwd Diagnoses Atrial fibrillation with rapid ventricular response I48.91 Syncope R55 Urinary tract infection N39.0 Dehydration E86.0
--- NOTE | 2024-04-30 12:47 | PC.NURSE ---
Discharge Note Patient discharged to home via POV accompanied by daughter. Discharge instructions reviewed with patient and/or student services representative. Mobile pharmacy medications and/or prescriptions provided. Belongings/home medications returned.
== END 2024-04-30 11:00 | disposition home or self-care (01) | DRG 309 ==
LOC: ER 04-29 00:38 → ICU 04-29 00:49 → CSU 04-30 00:40
PROVIDERS: Admitting Provider Internal Medicine; Emergency Provider Emergency Medicine; PCP Family Medicine; Visit Provider Internal Medicine
DX: I48.20 Chronic atrial fibrillation, unspecified (principal); J45.901 Unspecified asthma with (acute) exacerbation; N39.0 Urinary tract infection, site not specified; E86.0 Dehydration; G20.A1 Parkinson's disease without dyskinesia, without mention of fluctuations; F25.9 Schizoaffective disorder, unspecified; H91.90 Unspecified hearing loss, unspecified ear
CPT/HCPCS: 36415; 70450; 71045; 80048; 80053; 80164; 81001; 83605; 83735; 83880; 84439; 84443; 84484; 85025; 85378; 86140; 87086; 87486; 87581; 87633; 93005; 93306; 93880; 94640; 96365; 99285; J0696; J7030; J7614; J7626